=== PATIENT | female | born 2000 | race Caucasian/White ===

== ENCOUNTER 2022-04-28 16:28 | Emergency (ER) | payer OTHER ==
[2022-04-28] MEDS ORDERED: FENTANYL CITR 100 MCG/2 ML ONE (17:08)
--- NOTE | 2022-04-28 17:44 | RAD REPORT ---
EXAM DESCRIPTION: RAD - Foot Right 3 View - 04/28/2022 5:27 pm CLINICAL HISTORY: ANIMAL BITE COMPARISON: No comparisons FINDINGS/IMPRESSION: No acute fracture. No malalignment. No significant focal degenerative changes.
[2022-04-28] MEDS ORDERED: BUPIVACAINE 0.5% PF 10 ML VIAL ONE (17:47)
[2022-04-28] MEDS ORDERED: LIDOCAINE 1% W/EPI 1:100,000 MDV 20 ML VIAL ONE (17:47)
[2022-04-28 18:45] LABS: Urine Blood Negative (Negative); Urine Glucose Negative (Negative); Urine Protein Negative (Negative)
--- NOTE | 2022-04-28 18:58 | EDPHYS ---
Physician Documentation [facility] Name: Ariana Moyer Age: 21 yrs Sex: Female : 2000 Arrival Date: 04/28/2022 Time: 16:39 Bed 4 Private MD: ED Physician Domonique Conteh HPI: 04/28 17:00 This 21 yrs old Female presents to ER via Wheelchair with complaints of Shark Bite. cp 17:00 The patient presents with an injury, a laceration. The complaints affect the dorsum of cp right foot. 17:00 Context: Patient reports [place] she cp felt an animal bite and hold onto right foot. Patient was unable to see animal but believes it was a shark. Onset: The symptoms/episode began/occurred just prior to arrival. Associated signs and symptoms: The patient has no apparent associated signs or symptoms. Patient reports tetanus in up to date. 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 Last tetanus immunization: < 5 years ago. - Social history:: Smoking status: Reported history of juuling and/or vaping. ROS: 17:05 Skin: Positive for laceration(s), of the dorsum of right foot. cp 17:05 Constitutional: Negative for body aches, chills, fever. cp 17:05 Cardiovascular: Negative for chest pain, palpitations. cp 17:05 Respiratory: Negative for cough, shortness of breath, wheezing. 17:05 Abdomen/GI: Negative for abdominal pain, nausea, vomiting, and diarrhea. 17:05 Neuro: Negative for altered mental status, numbness, weakness. 17:05 All other systems are negative. cp Exam: 17:10 Constitutional: The patient appears in no acute distress, alert, awake, non-toxic, well cp developed, well nourished, uncomfortable. 17:10 Head/Face: Normocephalic, atraumatic. cp 17:10 Eyes: Periorbital structures: appear normal, Conjunctiva: normal, no exudate, no cp injection, Sclera: no appreciated abnormality, Lids and lashes: appear normal, bilaterally. 17:10 ENT: External ear(s): are unremarkable, Nose: is normal, Mouth: Lips: moist, Oral mucosa: moist, Posterior pharynx: Airway: no evidence of obstruction, patent. 17:10 Chest/axilla: Inspection: normal. 17:10 Cardiovascular: Rate: tachycardic, Rhythm: regular, Pulses: Pulses are 2+ in right cp dorsalis pedis artery. 17:10 Respiratory: the patient does not display signs of respiratory distress, Respirations: normal, no use of accessory muscles, no retractions, labored breathing, is not present, Breath sounds: are clear throughout, no decreased breath sounds, no stridor, no wheezing. 17:10 Abdomen/GI: Exam negative for discomfort, distension, guarding, Inspection: abdomen appears normal. 17:10 Back: pain, is absent, ROM is normal. 17:10 Skin: injury, laceration(s), the wound is approximately 3 cm(s), of the dorsum of right foot, that can be described as no foreign body, irregular, with mild bleeding. 17:10 Neuro: Orientation: to person, place \T\ time. Mentation: is normal, Motor: moves all fours, strength is normal. Vital Signs: 16:40 BP 113 / 87; Pulse 118; Resp 17; Temp 98.6; Pulse Ox 99% on R/A; Weight 87.09 kg; jl7 Height 5 ft. 5 in. (165.10 cm); Pain 6/10; 18:02 BP 134 / 85; Pulse 91; Resp 16; Pulse Ox 99% on R/A; jd3 19:22 BP 131 / 72; Pulse 77; Resp 18 S; Pulse Ox 99% on R/A; as6 16:40 Body Mass Index 31.95 (87.09 kg, 165.10 cm) jl7 MDM: 16:46 Patient medically screened. cp 18:00 Differential diagnosis: fracture, foreign body, penetrating trauma, simple laceration. cp 18:56 Data reviewed: vital signs, nurses notes, radiologic studies, plain films. cp 18:56 Test interpretation: by ED physician or midlevel provider: plain radiologic studies. cp Counseling: I had a detailed discussion with the patient and/or guardian regarding: the historical points, exam findings, and any diagnostic results supporting the discharge/admit diagnosis, radiology results, the need for outpatient follow up, a general surgeon, to return to the emergency department if symptoms worsen or persist or if there are any questions or concerns that arise at home. Response to treatment: the patient's symptoms have markedly improved after treatment, and as a result, I will discharge patient. 18:56 ED course: VSS. Wound cleaned, irrigated and dressed. No sutures placed at this time. cp Recommend f/u with general surgery next 2-3 days. 04/28 18:44 Order name: Urine --Ancillary (enter results); Complete Time: 18:54 ds4 04/28 18:45 Order name: Urine Dipstick-Ancillary; Complete Time: 18:54 EDMS 04/28 16:48 Order name: XRAY Foot RIGHT 3 View; Complete Time: 17:57 cp 04/28 17:57 Interpretation: Report reviewed. 04/28 16:48 Order name: Wound Care: please clean and irrigate wound; Complete Time: 17:41 cp 04/28 18:21 Order name: Crutches; Complete Time: 19:36 cp 04/28 18:21 Order name: Urine Test (obtain specimen); Complete Time: 18:44 cp 04/28 18:21 Order name: Urine Dipstick-Ancillary (obtain specimen); Complete Time: 18:44 cp Administered Medications: 16:57 CANCELLED (Physician Discretion): Hydrocodone-Acetaminophen (7.5 mg-325 mg) 1 tabs PO cp once; RASS on ADMIN: Combtv4, Very Agttd3, Agttd2, Rstlss1, AlertClm0, Drwsy-1, Lt Sdtn-2, Mod Sdtn-3, Dp Sdtn-4, UnArsble-5 17:18 Drug: fentaNYL (PF) 25 mcg Route: IVP; Site: right antecubital; jd3 19:36 Follow up: Response: No adverse reaction as6 17:53 Drug: Lidocaine-Epinephrine -1%: (1:100,000) 10 ml Volume: 20 ml; Route: Infiltration; jd3 19:36 Follow up: Response: No adverse reaction as6 17:53 Drug: Marcaine (bupivacaine) (0.5 %) 10 ml Volume: 10 ml; Route: Infiltration; jd3 19:37 Follow up: Response: No adverse reaction as6 19:29 Drug: Doxycycline 100 mg Route: PO; as6 19:37 Follow up: Response: No adverse reaction as6 19:29 Drug: Cipro (ciprofloxacin) 500 mg Route: PO; as6 19:37 Follow up: Response: No adverse reaction as6 Disposition Summary: 04/28/22 18:57 Discharge Ordered Location: Home cp Problem: new cp Symptoms: have improved cp Condition: Stable cp Diagnosis - Laceration without foreign body of foot - right cp Followup: cp - With: Private Physician - When: 2 - 3 days - Reason: Wound Recheck, general surgery Discharge Instructions: - Discharge Summary Sheet cp - Nonsutured Laceration Care cp - Animal Bite, Adult cp Forms: - Medication Reconciliation Form cp - Thank You Letter cp - Antibiotic Education cp - Prescription Opioid Use cp Prescriptions: - Ibuprofen 800 mg Oral Tablet - take 1 tablet by ORAL route every 8 hours As needed take with food; 30 tablet; cp Refills: 0, Product Selection Permitted - Doxycycline Hyclate 100 mg Oral Tablet - take 1 tablet by ORAL route every 12 hours; 20 tablet; Refills: 0, Product cp Selection Permitted - Cipro 500 mg Oral Tablet - take 1 tablet by ORAL route every 12 hours for 10 days; 20 tablet; Refills: 0, cp Product Selection Permitted Signatures: Dispatcher [employer] EDMS Fazal Posadas PA PA cp Leal, Jahala, RN RN [id number] Shiv Bustamante RN RN jd3 Andrew Haro RN RN as6 Corrections: (The following items were deleted from the chart) 16:57 16:49 Hydrocodone-Acetaminophen (7.5 mg-325 mg) 1 tabs PO once; RASS on ADMIN: Combtv4, cp Very Agttd3, Agttd2, Rstlss1, AlertClm0, Drwsy-1, Lt Sdtn-2, Mod Sdtn-3, Dp Sdtn-4, UnArsble-5 ordered. cp
--- NOTE | 2022-04-28 18:58 | ER ---
Nurse's Notes [facility] Name: Ariana Moyer Age: 21 yrs Sex: Female : 2000 Arrival Date: 04/28/2022 Time: 16:39 Bed 4 Private MD: Diagnosis: Laceration without foreign body of foot-right Presentation: 04/28 16:40 Chief complaint: Patient states: [place] the beach and felt something grab a hold jl7 of right foot, kicked 4 times to get it off. Puncture noted to top of right foot, pt reports inability to wiggle toes. Coronavirus screen: At this time, the client does not indicate any symptoms associated with coronavirus-19. Ebola Screen: No symptoms or risks identified at this time. Initial Sepsis Screen: Does the patient meet any 2 criteria? No. Patient's initial sepsis screen is negative. Does the patient have a suspected source of infection? No. Patient's initial sepsis screen is negative. Risk Assessment: Do you want to hurt yourself or someone else? Patient reports no desire to harm self or others. Onset of symptoms was April 28, 2022 at 15:45. Care prior to arrival: None. 16:40 Method Of Arrival: Wheelchair jl7 16:40 Acuity: EFREN 3 jl7 Triage Assessment: 16:43 General: Appears in no apparent distress. uncomfortable, Behavior is calm, cooperative, jl7 appropriate for age. Pain: Complains of pain in right foot Pain currently is 6 out of 10 on a pain scale. 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 Last tetanus immunization: < 5 years ago. - Social history:: Smoking status: Reported history of juuling and/or vaping. Screenin:26 Abuse screen: Denies threats or abuse. Nutritional screening: No deficits noted. jd3 Tuberculosis screening: No symptoms or risk factors identified. Fall Risk IV access (20 points). Ambulatory Aid- None/Bed Rest/Nurse Assist (0 pts). Gait- Normal/Bed Rest/Wheelchair (0 pts) Mental Status- Oriented to own ability (0 pts). Total Price Fall Scale indicates No Risk (0-24 pts). Assessment: 17:15 General: Appears in no apparent distress. uncomfortable, Behavior is calm, cooperative, jd3 appropriate for age. Pain: Complains of pain in right foot Quality of pain is described as sharp, tender. Neuro: Subramanian Agitation-Sedation Scale (RASS): +1 Restless Level of Consciousness is awake, alert, obeys commands, Oriented to person, place, time, situation. Cardiovascular: Denies chest pain, Capillary refill < 3 seconds Patient's skin is warm and dry. Respiratory: Airway is patent Respiratory effort is even, unlabored, Respiratory pattern is regular, symmetrical, Denies cough, shortness of breath. GI: No signs and/or symptoms were reported involving the gastrointestinal system. : No signs and/or symptoms were reported regarding the genitourinary system. EENT: No signs and/or symptoms were reported regarding the EENT system. Derm: Skin is intact, Skin is dry, Skin is normal, Skin temperature is warm Wound noted dorsum of right foot Wound is about 4 cm uneven, full thickness puncture wound noted to top of foot. Other: no bleeding noted at this time. Musculoskeletal: Circulation, motion, and sensation intact. Range of motion: intact in all extremities. 18:01 Reassessment: Patient appears in no apparent distress at this time. Patient and/or jd3 family updated on plan of care and expected duration. Pain level reassessed. Patient is alert, oriented x 3, equal unlabored respirations, skin warm/dry/pink. Patient states feeling better. Vital Signs: 16:40 BP 113 / 87; Pulse 118; Resp 17; Temp 98.6; Pulse Ox 99% on R/A; Weight 87.09 kg; jl7 Height 5 ft. 5 in. (165.10 cm); Pain 6/10; 18:02 BP 134 / 85; Pulse 91; Resp 16; Pulse Ox 99% on R/A; jd3 19:22 BP 131 / 72; Pulse 77; Resp 18 S; Pulse Ox 99% on R/A; as6 16:40 Body Mass Index 31.95 (87.09 kg, 165.10 cm) jl7 ED Course: 16:39 Patient arrived in ED. jl7 16:41 Fazal Posadas PA is PHCP. cp 16:41 Domonique Conteh is Attending Physician. cp 16:43 Triage completed. jl7 16:43 Arm band placed on right wrist. jl7 17:20 Shiv Bustamante, JAMES is Primary Nurse. jd3 17:27 Patient has correct armband on for positive identification. Placed in gown. Bed in low jd3 position. Call light in reach. Side rails up X 1. Adult w/ patient. Pulse ox on. NIBP on. 17:29 XRAY Foot RIGHT 3 View In Process Unspecified. EDMS 19:37 No provider procedures requiring assistance completed. IV discontinued, intact, as6 bleeding controlled, No redness/swelling at site. Pressure dressing applied. 19:39 Crutch training done. Wound care: to abrasion, located on dorsum of right foot was as6 cleaned with soap and water, dressed with band aid, Patient tolerated well. Administered Medications: 16:57 CANCELLED (Physician Discretion): Hydrocodone-Acetaminophen (7.5 mg-325 mg) 1 tabs PO cp once; RASS on ADMIN: Combtv4, Very Agttd3, Agttd2, Rstlss1, AlertClm0, Drwsy-1, Lt Sdtn-2, Mod Sdtn-3, Dp Sdtn-4, UnArsble-5 17:18 Drug: fentaNYL (PF) 25 mcg Route: IVP; Site: right antecubital; jd3 19:36 Follow up: Response: No adverse reaction as6 17:53 Drug: Lidocaine-Epinephrine -1%: (1:100,000) 10 ml Volume: 20 ml; Route: Infiltration; jd3 19:36 Follow up: Response: No adverse reaction as6 17:53 Drug: Marcaine (bupivacaine) (0.5 %) 10 ml Volume: 10 ml; Route: Infiltration; jd3 19:37 Follow up: Response: No adverse reaction as6 19:29 Drug: Doxycycline 100 mg Route: PO; as6 19:37 Follow up: Response: No adverse reaction as6 19:29 Drug: Cipro (ciprofloxacin) 500 mg Route: PO; as6 19:37 Follow up: Response: No adverse reaction as6 Medication: 19:38 VIS not applicable for this client. as6 Outcome: 18:57 Discharge ordered by MD. cp 19:38 Discharged to home ambulatory, with crutches, with family. as6 19:38 Condition: stable 19:38 Discharge instructions given to patient, Instructed on discharge instructions, follow up and referral plans. medication usage, crutch walking, wound care, Demonstrated understanding of instructions, follow-up care, medications, wound care, crutch walking, Prescriptions given X 3. 19:39 Patient left the ED. as6 Signatures: Dispatcher [employer] EDMS Fazal Posadas PA PA cp Leal, Jahala, RN RN jl7 Shiv Bustamante RN RN jd3 Andrew Haro RN RN as6 Corrections: (The following items were deleted from the chart) 17:26 17:22 General: Appears in no apparent distress. uncomfortable, Behavior is calm, jd3 cooperative, appropriate for age, jd3 17:26 17:22 Pain: Complains of pain in right foot Quality of pain is described as sharp, jd3 tender, jd3 17:26 17:22 Neuro: Subramanian Agitation-Sedation Scale (RASS): +1 Restless Level of jd3 Consciousness is awake, alert, obeys commands, Oriented to person, place, time, situation, jd3 17:26 17:22 Cardiovascular: Denies chest pain, Capillary refill < 3 seconds Patient's skin is jd3 warm and dry. jd3 17:26 17:22 Respiratory: Airway is patent Respiratory effort is even, unlabored, Respiratory jd3 pattern is regular, symmetrical, Denies cough, shortness of breath jd3 17:26 17:22 GI: No signs and/or symptoms were reported involving the gastrointestinal system. jd3 jd3 17:26 17:22 : No signs and/or symptoms were reported regarding the genitourinary system. jd3jd3 17:26 17:22 EENT: No signs and/or symptoms were reported regarding the EENT system. jd3 jd3 17:26 17:22 Derm: Skin is intact, Skin is dry, Skin is normal, Skin temperature is warm jd3 jd3 17:26 17:22 Musculoskeletal: Circulation, motion, and sensation intact. Range of motion: jd3 intact in all extremities, jd3
[2022-04-28] MEDS ORDERED: DOXYCYCLINE 100 MG CAP PO ONE (19:34)
[2022-04-28] MEDS ORDERED: CIPROFLOXACIN HCL 500 MG TAB ONE (19:34)
[2022-04-28 19:52] VITALS: TEMP 98.6; O2SAT 99
[2022-04-28 19:56] VITALS: BP 131/72
== END 2022-04-28 19:39 | disposition home or self-care (01) ==
LOC: ER 16:28
DX: S91.311A Laceration without foreign body, right foot, initial encounter (principal)
CPT/HCPCS: 81025; 81003; 73630; J3010; 96374; 99284